=== PATIENT | male | born 2000 | race Caucasian/White ===

== ENCOUNTER 2018-03-31 13:28 | Emergency (ER) | payer SELFPAY ==
[~2018-03-31] VITALS: Ht 167.6 cm; Wt 63.5 kg
[2018-03-31 13:30] VITALS: BP 126/65
--- NOTE | 2018-03-31 13:30 | NUR ---
PT BIBA BLS TO BED 4
--- NOTE | 2018-03-31 13:32 | NUR ---
17/M BIBA VIA [employer] FOUND WALKING ON THE STREET "FEELING SICK", [employer] [place] ON THE SCENE; DENIES N/V/D/DIZZINESS OR PAIN; WAS USING METH; BS ON THE FIELD 126. 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 AAOX4 WITH EVEN AND STEADY GAIT; LUNGS CLEAR BL; HR EVEN AND REGULAR; PT DENIES ANY FEVER, CP, SOB, OR COUGH AT THIS TIME; PATIENT STATES PAIN OF 0/10 AT THIS TIME; VSS; PATIENT POSITIONED FOR COMFORT; HOB ELEVATED; BEDRAILS UP X2; BED DOWN. ER MD MADE AWARE OF PT STATUS.
--- NOTE | 2018-03-31 13:41 | NUR ---
DR CASTRO EVALUATING AT BEDSIDE
[2018-03-31 13:53] VITALS: BP 112/50
--- NOTE | 2018-03-31 13:53 | NUR ---
Patient discharged with v/s stable. Written and verbal after care instructions given and explained. Patient verbalized understanding. Ambulatory with steady gait. All questions addressed prior to discharge. Advised to follow up with PMD.
== END 2018-03-31 13:55 | disposition home or self-care (01) ==
LOC: MED 13:28
DX: F15.10 Other stimulant abuse, uncomplicated (principal)
CPT/HCPCS: 99283